=== PATIENT | female | born 1955 | race Caucasian/White ===

== ENCOUNTER 2024-07-29 16:41 | Outpatient (CLI) | payer OTHER, SELFPAY | END 2024-07-29 16:42 | disposition home or self-care (01) | LOC: AMB 07-31 11:01 | PROVIDERS: Visit Provider Emergency Medicine | DX: S61.512A Laceration without foreign body of left wrist, initial encounter (principal); W26.8XXA Contact with other sharp object(s), not elsewhere classified, initial encounter; Y92.009 Unspecified place in unspecified non-institutional (private) residence as the place of occurrence of the external cause | CPT/HCPCS: A0425; A0427 ==